=== PATIENT | female | born 1995 | race African-American/Black ===

== ENCOUNTER 2022-01-17 14:05 | Emergency (ER) | payer SELFPAY ==
[~2022-01-17] VITALS: Ht 162.6 cm; Wt 76.7 kg
--- NOTE | 2022-01-17 14:09 | NUR ---
To ER bed 2, [id number], seizure like activity while at back of uber. 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
--- NOTE | 2022-01-17 14:10 | NUR ---
BIBRA 89 FOR SEIZURE-LIKE ACTIVITY WHILE AT THE BACK OF UBER RIDE. 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
--- NOTE | 2022-01-17 14:35 | NUR ---
DR COPPOLA AT BEDSIDE
[2022-01-17 14:56] LABS: BASOPHILS % (AUTO) 0.7 % (0.0-2.0); EOSINOPHILS % (AUTO) 1.9 % (0.0-6.0); HEMATOCRIT 43 % (33-45); HEMOGLOBIN 14.5 g/dL (11.5-14.8); LYMPHOCYTES # (AUTO) 1.2 K/uL (0.8-4.8); LYMPHOCYTES % (AUTO) 19.8 % (20.0-44.0); MEAN CORPUSCULAR HGB CONC 34 g/dl (31.0-36.0); MEAN CORPUSCULAR VOLUME 89 fL (82-100); MONOCYTES # (AUTO) 0.3 K/uL (0.1-1.30); MONOCYTES % (AUTO) 5.4 % (2.0-12.0); NEUTROPHILS # (AUTO) 4.5 K/uL (1.8-8.9); NEUTROPHILS % (AUTO) 72.2 % (43.0-81.0); PLATELET COUNT (AUTO) 271 K/uL (150-450); RED BLOOD CELL COUNT(AUTO) 4.86 MIL/uL (4.0-5.2); WHITE BLOOD COUNT (AUTO) 6.2 K/uL (4.3-11.0)
[2022-01-17] MEDS ORDERED: ACETAMINOPHEN 325 MG TABLET PO ONE (15:00)
[2022-01-17] MEDS ORDERED: ACETAMINOPHEN 325 MG TABLET ONE (15:01)
--- NOTE | 2022-01-17 15:09 | NUR ---
IV removed. Catheter intact and site benign. Pressure and 4x4 applied to site. No bleeding noted.
[2022-01-17 15:11] LABS: ALBUMIN 4.3 g/dL (3.4-5.0); BILIRUBIN,DIRECT 0.1 mg/dL (0.0-0.2); BILIRUBIN,TOTAL 0.4 mg/dL (0.2-1.0); CALCIUM, SERUM 9.3 mg/dL (8.5-10.1); CREATININE 0.9 mg/dL (0.6-1.3); POTASSIUM 4.6 mmol/L (3.5-5.1); TOTAL PROTEIN, SERUM 8.2 g/dL (6.4-8.2)
--- NOTE | 2022-01-17 15:13 | NUR ---
Patient discharged to home in stable condition. Written and verbal after care instructions given. Patient verbalizes understanding of instruction.
[2022-01-17 15:14] VITALS: BP 120/80
== END 2022-01-17 15:15 | disposition home or self-care (01) ==
LOC: ER 14:07
DX: G40.909 Epilepsy, unspecified, not intractable, without status epilepticus (principal)
CPT/HCPCS: 36415; 80048-TC; 80076-TC; 85025-TC